=== PATIENT | female | born 1985 | race Caucasian/White ===

== ENCOUNTER 2018-03-14 10:13 | Outpatient (CLI) | payer OTHER | END 2018-03-14 10:27 | disposition home or self-care (01) | LOC: RAD 10:13 → SONOGRAMA 10:13 → RAD 10:27 | DX: Q51.818 Other congenital malformations of uterus (principal) ==

== ENCOUNTER 2019-05-01 10:54 | Outpatient (CLI) | payer OTHER | END 2019-05-01 11:43 | disposition home or self-care (01) | LOC: NST 10:54 | DX: Z34.82 Encounter for supervision of other normal pregnancy, second trimester (principal) ==

== ENCOUNTER 2019-05-15 08:41 | Outpatient (CLI) | payer OTHER | END 2019-05-15 09:15 | disposition home or self-care (01) | LOC: NST 08:41 | DX: Z34.82 Encounter for supervision of other normal pregnancy, second trimester (principal) ==

== ENCOUNTER 2019-05-22 08:26 | Outpatient (CLI) | payer OTHER | END 2019-05-22 09:20 | disposition home or self-care (01) | LOC: NST 08:26 | DX: Z34.83 Encounter for supervision of other normal pregnancy, third trimester (principal) ==

== ENCOUNTER 2019-05-29 13:21 | Outpatient (CLI) | payer OTHER | END 2019-05-29 14:55 | disposition home or self-care (01) | LOC: NST 13:21 | DX: Z34.83 Encounter for supervision of other normal pregnancy, third trimester (principal); O09.73 Supervision of high risk pregnancy due to social problems, third trimester ==

== ENCOUNTER 2019-06-05 09:01 | Outpatient (CLI) | payer OTHER | END 2019-06-05 09:30 | disposition home or self-care (01) | LOC: NST 09:01 | DX: Z34.83 Encounter for supervision of other normal pregnancy, third trimester (principal) ==

== ENCOUNTER 2019-07-18 09:24 | Outpatient (CLI) | payer OTHER | END 2019-07-18 10:18 | disposition home or self-care (01) | LOC: NST 09:24 | DX: Z34.83 Encounter for supervision of other normal pregnancy, third trimester (principal) ==

== ENCOUNTER 2019-07-25 09:23 | Outpatient (CLI) | payer OTHER | END 2019-07-25 10:26 | disposition home or self-care (01) | LOC: NST 09:23 | DX: Z34.83 Encounter for supervision of other normal pregnancy, third trimester (principal) ==

== ENCOUNTER 2019-07-29 09:17 | Outpatient (CLI) | payer OTHER | END 2019-07-29 09:57 | disposition home or self-care (01) | LOC: NST 09:17 | DX: Z34.83 Encounter for supervision of other normal pregnancy, third trimester (principal) ==

== ENCOUNTER 2019-08-01 10:58 | Outpatient (CLI) | payer OTHER | END 2019-08-01 11:59 | disposition home or self-care (01) | LOC: NST 10:58 | DX: Z34.83 Encounter for supervision of other normal pregnancy, third trimester (principal) ==

== ENCOUNTER 2019-08-05 09:09 | Outpatient (CLI) | payer OTHER ==
[2019-08-06] MEDS ORDERED: LABETALOL HCL200 MG PO (08:07)
[2019-08-06] MEDS ORDERED: PRENATAL TABLE1 EACH PO (08:08)
[2019-08-06] MEDS ORDERED: ASPIR 8181 MG PO (08:09)
[2019-08-06] MEDS ORDERED: NIFEDIPINE ER30 M1 PO (13:29)
[2019-08-06] MEDS ORDERED: LABETALOL HCL100 MG PO (13:29)
== END 2019-08-05 09:44 | disposition home or self-care (01) ==
LOC: NST 09:09
DX: Z34.83 Encounter for supervision of other normal pregnancy, third trimester (principal)

== ENCOUNTER 2019-08-06 06:27 | Inpatient (IN) | payer OTHER ==
[~2019-08-06] VITALS: Ht 154.9 cm; Wt 2.7 kg
[2019-08-06] MEDS ORDERED: LABETALOL HCL200 MG PO (08:07)
[2019-08-06] MEDS ORDERED: PRENATAL TABLE1 EACH PO (08:08)
[2019-08-06] MEDS ORDERED: ASPIR 8181 MG PO (08:09)
[2019-08-06] MEDS ORDERED: LABETALOL HCL100 MG PO (13:29)
[2019-08-06] MEDS ORDERED: NIFEDIPINE ER30 M1 PO (13:29)
== END 2019-08-09 13:18 | disposition home or self-care (01) | DRG 788 ==
LOC: LDR 06:27 → SURG-SUITE 06:27 → LDR 08-19 12:05
PROVIDERS: Obstetrics & Gynecology; ADMIT Obstetrics & Gynecology Maternal & Fetal Medicine
PROC: 3E033VJ Introduction of Other Hormone into Peripheral Vein, Percutaneous Approach (ICD-10-PCS; 2019-08-06)
PROC: 4A1HXCZ Monitoring of Products of Conception, Cardiac Rate, External Approach (ICD-10-PCS; 2019-08-06)
PROC: 10D00Z1 Extraction of Products of Conception, Low, Open Approach (ICD-10-PCS; principal; 2019-08-06 17:00)
DX: O61.0 Failed medical induction of labor (principal); Z3A.38 38 weeks gestation of pregnancy; Z37.0 Single live birth

== ENCOUNTER 2019-08-13 10:58 | Inpatient (IN) | payer OTHER ==
[~2019-08-13] VITALS: Ht 154.9 cm; Wt 63.5 kg
[~2019-08-13 10:58] MED LIST: ASPIR 8181 MG PO; LABETALOL HCL100 MG PO; LABETALOL HCL200 MG PO; NIFEDIPINE ER30 M1 PO; PRENATAL TABLE1 EACH PO
== END 2019-08-15 09:58 | disposition home or self-care (01) | DRG 776 ==
LOC: LDR 10:58
PROVIDERS: ADMIT Obstetrics & Gynecology
DX: O14.05 Mild to moderate pre-eclampsia, complicating the puerperium (principal)

== ENCOUNTER → 2020-10-22 | Outpatient (CLI) | payer OTHER ==
[~2020-10-22] MED LIST changes: +MUCINEX FAST-M180 M2 PO; +PRENATAL TABLE1 EAC1 PO
== END | disposition home or self-care (01) ==
LOC: NST 14:16
PROVIDERS: ATTEND Obstetrics & Gynecology
DX: Z34.83 Encounter for supervision of other normal pregnancy, third trimester (principal)

== ENCOUNTER 2020-11-19 14:26 | Outpatient (CLI) | payer OTHER ==
[~2020-11-19 14:26] MED LIST changes: -MUCINEX FAST-M180 M2 PO; -PRENATAL TABLE1 EAC1 PO
== END 2020-11-19 17:35 | disposition home or self-care (01) ==
LOC: NST 14:26
PROVIDERS: ATTEND Obstetrics & Gynecology Maternal & Fetal Medicine
DX: O16.3 Unspecified maternal hypertension, third trimester (principal); Z3A.35 35 weeks gestation of pregnancy

== ENCOUNTER 2020-12-10 10:28 | Outpatient (CLI) | payer OTHER | END 2020-12-10 11:10 | disposition home or self-care (01) | LOC: NST 10:28 | PROVIDERS: ATTEND Obstetrics & Gynecology | DX: Z34.83 Encounter for supervision of other normal pregnancy, third trimester (principal) ==

== ENCOUNTER 2020-12-16 07:45 | Inpatient (IN) | payer OTHER ==
[~2020-12-16] VITALS: Ht 152.4 cm; Wt 2.7 kg
[2020-12-18] MEDS ORDERED: LABETALOL HCL100 MG PO (11:46)
[2020-12-18] MEDS ORDERED: MUCINEX FAST-M180 M2 PO (11:47)
[2020-12-18] MEDS ORDERED: PRENATAL TABLE1 EAC1 PO (11:47)
== END 2020-12-21 10:05 | disposition home or self-care (01) | DRG 787 ==
LOC: LDR 12-18 09:00 → SURG-SUITE 12-18 09:00 → OB/GYN 12-18 12:39 → SURG-SUITE 12-18 15:28 → LDR 12-22 07:45
PROVIDERS: ADMIT Obstetrics & Gynecology Maternal & Fetal Medicine; ATTEND Obstetrics & Gynecology Maternal & Fetal Medicine
PROC: 4A1HXFZ Monitoring of Products of Conception, Cardiac Rhythm, External Approach (ICD-10-PCS; 2020-12-18)
PROC: 10D00Z1 Extraction of Products of Conception, Low, Open Approach (ICD-10-PCS; principal; 2020-12-18 09:00)
DX: O34.211 Maternal care for low transverse scar from previous cesarean delivery (principal); O10.02 Pre-existing essential hypertension complicating childbirth; O26.893 Other specified pregnancy related conditions, third trimester; Z67.41 Type O blood, Rh negative; Z3A.39 39 weeks gestation of pregnancy; Z37.0 Single live birth

== ENCOUNTER 2020-12-17 10:36 | Outpatient (CLI) | payer OTHER ==
[2020-12-18] MEDS ORDERED: LABETALOL HCL100 MG PO (11:46)
[2020-12-18] MEDS ORDERED: MUCINEX FAST-M180 M2 PO (11:47)
[2020-12-18] MEDS ORDERED: PRENATAL TABLE1 EAC1 PO (11:47)
== END 2020-12-17 11:59 | disposition home or self-care (01) ==
LOC: NST 10:36
PROVIDERS: ATTEND Obstetrics & Gynecology
DX: Z34.83 Encounter for supervision of other normal pregnancy, third trimester (principal)

== ENCOUNTER 2022-12-14 09:18 | Emergency (ER) | payer OTHER ==
[~2022-12-14] VITALS: Ht 154.9 cm; Wt 48.5 kg
[~2022-12-14 09:18] MED LIST changes: +MUCINEX FAST-M180 M2 PO; +PRENATAL TABLE1 EAC1 PO
== END 2022-12-14 12:36 | disposition home or self-care (01) ==
LOC: ER 09:18
DX: J45.901 Unspecified asthma with (acute) exacerbation (principal)